=== PATIENT | male | born 1970 | race Caucasian/White ===

== ENCOUNTER 2022-12-08 16:53 | Outpatient (CLI) | payer SELFPAY ==
[2022-12-08 14:10] LABS: Albumin* 4.5 g/dL (3.3-5.0); Chloride* 107 mmol/L (96-114); Potassium* 4.4 mmol/L (3.6-5.1); Sodium* 140 mmol/L (135-149)
[2022-12-08 14:12] LABS: Bilirubin Total* 0.8 mg/dL (0.1-1.5); Carbon Dioxide* 26 mmol/L (20-32); Cholesterol* 179 mg/dL (90-199); Estimated Glomerular Filt Rate 91 ml/min; Total Protein* 7.5 g/dL (6.0-8.3)
[2022-12-08 14:13] LABS: Alanine Aminotransferase* 47 U/L (4-50); Alkaline Phosphatase* 72 U/L (40-150); Aspartate Amino Transferase* 29 U/L (12-35); Blood Urea Nitrogen* 17 mg/dL (7-30); Calcium* 9.1 mg/dL (8.4-10.6); Glucose* 99 mg/dL (60-115); HDL Cholesterol* 44 mg/dL (>=40); LDL Cholesterol Calculated 106 mg/dL (<100); Triglycerides* 147 mg/dL (40-149)
== END 2022-12-08 16:54 | disposition home or self-care (01) ==
PROVIDERS: PCP Physician Assistant Medical; Visit Provider Physician Assistant Medical
DX: E78.5 Hyperlipidemia, unspecified (principal)
CPT/HCPCS: 80053; 80061

== ENCOUNTER 2024-08-25 06:59 | Outpatient (CLI) | payer OTHER, SELFPAY | END 2024-08-25 07:00 | disposition home or self-care (01) | PROVIDERS: PCP Family Medicine; Visit Provider Family Medicine | DX: Z00.00 Encounter for general adult medical examination without abnormal findings (principal); E78.5 Hyperlipidemia, unspecified; I10 Essential (primary) hypertension; E66.01 Morbid (severe) obesity due to excess calories; I77.810 Thoracic aortic ectasia; Z11.59 Encounter for screening for other viral diseases; Z12.5 Encounter for screening for malignant neoplasm of prostate | CPT/HCPCS: 80053; 80061; 82043; 82570; 86803; G0103 ==

== ENCOUNTER 2025-08-09 14:36 | Outpatient (CLI) | payer OTHER, SELFPAY | END 2025-08-09 14:37 | disposition home or self-care (01) | PROVIDERS: PCP Family Medicine; Visit Provider Family Medicine | DX: I10 Essential (primary) hypertension (principal); E78.5 Hyperlipidemia, unspecified; Z12.5 Encounter for screening for malignant neoplasm of prostate; R73.03 Prediabetes; Z13.1 Encounter for screening for diabetes mellitus | CPT/HCPCS: 80053; 80061; 82043; 82570; G0103 ==

== ENCOUNTER 2025-08-18 12:10 | Outpatient (CLI) | payer OTHER, SELFPAY ==
[2025-08-18] MEDS: PERFLUTREN LIPID MICROSPHERES 2 ML VIAL IVP (12:58)
== END 2025-08-18 12:11 | disposition home or self-care (01) ==
LOC: RAD 12:10
PROVIDERS: PCP Family Medicine; Visit Provider Family Medicine
DX: I77.810 Thoracic aortic ectasia (principal)
CPT/HCPCS: 93306; Q9957